=== PATIENT | female | born 1935 | race Caucasian/White ===

== ENCOUNTER → 2021-03-08 12:21 | Outpatient (CLI) | payer MEDICARE, OTHER, SELFPAY ==
--- NOTE | 2021-03-08 12:24 | MRI_ITS ---
STUDY: MRI BRAIN WITH AND WITHOUT CONTRAST REASON FOR EXAM: Female, 85 years old. mild cognitive impairment; Parkinson''s disease TECHNIQUE: Standardized multiplanar fat and water weighted pulse sequences were obtained. IV dotarem 10ml was administered for the contrast portion of the examination. COMPARISON: None. FINDINGS: Atrophy and mild periventricular white matter ischemic changes without mass effect or.. Chronic ischemic changes within the shyla. Normal bilateral basal ganglia. Normal thalami. There is no extra-axial fluid accumulation. Normal flow voids within the major intracranial circulation suggesting patency by spin echo criteria. Normal venous enhancement. There is no enhancing intra-axial or extra-axial abnormality. Normal sella turcica, pituitary gland, infundibular stalk, optic chiasm and hypothalamus. Normal tectal plate and pineal gland. Normal midbrain, shyla and medulla. Normal cerebellum. Normal basal cisterns. Normal bilateral temporal bones. Normal bilateral internal auditory canals. No demonstrated orbital abnormality, within the constraints of a routine brain study. Normal visualized paranasal sinuses. Normal calvarium and skull base. Normal visualized soft tissue structures. Normal visualized upper cervical spine. MRI/Brain W/WO Contrast IMPRESSION: Mild atrophy and periventricular white matter ischemic change without evidence for acute infarct. Mild chronic ischemic changes within the shyla. Electronically Signed: Kraig Ramírez MD at 17:23 EDT , Service support ,
[2021-03-08 12:51] LABS: CREATININE FINGERSTICK 0.7 mg/dL (0.55-1.02); EGFR FINGERSTICK > 60.0000 mL/min (>60)
== END ==
PROVIDERS: PCP Family Medicine; Referring Provider Psychiatry & Neurology Neurology; Visit Provider Psychiatry & Neurology Neurology
DX: G20 Parkinson's disease (principal); G31.84 Mild cognitive impairment of uncertain or unknown etiology
CPT/HCPCS: 70553; A9575

== ENCOUNTER 2021-07-05 16:33 | Emergency (ER) | payer MEDICARE, OTHER, SELFPAY ==
[2021-07-05 16:34] VITALS: BP 162/66; PULSE 95; RESP 16; TEMP 37.1; O2SAT 95; BMI 24.4
--- NOTE | 2021-07-05 16:46 | EKG12_ITS ---
Test Reason : FOREIGN BODY Blood Pressure : / mmHG Vent. Rate : 091 BPM Atrial Rate : 091 BPM P-R Int : 218 ms QRS Dur : 092 ms QT Int : 374 ms P-R-T Axes : 084 -39 088 degrees QTc Int : 460 ms Sinus rhythm with 1st degree A-V block Left axis deviation Nonspecific T wave abnormality Abnormal ECG Confirmed by BLESSING FARR, ARNOLDO ([id number]), art editor DICK CERNA ([id number]) on 07/06/2021 2:28:19 P M Referred By: GURPREET/BHARGAV Confirmed By:ALISHA FUNK MD
--- NOTE | 2021-07-05 16:47 | EDS_ITS ---
HPI History of Present Illness Chief Complaint: Foreign Body Informant: patient and family Onset/Context/Timing Onset: Today Current Severity: Gone Maximum Severity: Severe Narrative Narrative: Patient presents for evaluation after having a choking episode at a local restaurant. Patient reportedly choked on a bite of steak. She became limp and unresponsive. After Heimlich maneuver was performed she came around. Daughter states she never saw her mother bring up anything and wanted to ensure her airway was clear. Patient states that she has no difficulty swallowing at this time. [facility] Medical History Arthritis History of pneumonia Hyperlipidemia Hypertension Type 2 diabetes mellitus Home Medications amlodipine 5 mg tablet 5 mg PO DAILY tab 04/19/21 [History Last Taken Unknown] atorvastatin 20 mg tablet 20 mg PO DAILY tab 04/19/21 [History Last Taken Unknown] meloxicam 7.5 mg tablet 7.5 mg PO DAILY tab 04/19/21 [History Last Taken Unknown] Handicap Placard #1 ea 04/27/21 [Rx Last Taken Unknown] melatonin 10 mg capsule 10 mg PO HS 04/27/21 [History Last Taken Unknown] multivitamin 1 tab PO DAILY 04/27/21 [History Last Taken Unknown] carbidopa 25 mg-levodopa 100 mg tablet 1 tab PO TID #270 tab 07/05/21 [Rx Last Taken Unknown] Allergy/AdvReac Type Severity Reaction Status Date / Time Penicillin Allergy Unknown . Uncoded 07/05/21 16:36 Family History Sister defect Epilepsy Grandmother Ovarian cancer Social History Smoking Status: Never smoker Electronic Cigarette Use: not used second hand exposure: No alcohol intake: never substance use type: does not use ROS ROS ED Constitutional Constitutional ED: Denies chills or fever(s) Eyes Eyes: Denies change in vision ENT ENT ED: Denies sore throat Cardiovascular Cardiovascular: Reports chest pain and other Details: Chest wall pain Respiratory/Chest Respiratory/Chest: Denies cough or dyspnea Gastrointestinal Gastrointestinal: Denies abdominal pain, diarrhea, nausea or vomiting Genitourinary Genitourinary ED: Denies dysuria Musculoskeletal Musculoskeletal: Reports back pain Integumentary Denies rash Neurologic Neurologic: Denies headache(s) or weakness Allergic/Immunologic Allergic/Immunologic ED: Denies urticaria EXAM Physical Exam Const Vital Signs: 07/05/21 16:34 Temperature 98.7 F Temperature Source Oral Pulse Rate 95 Respiratory Rate 16 Blood Pressure 162/66 H Blood Pressure Mean 98 Pulse Ox 95 Oxygen Delivery Method Room Air Positive well nourished and well developed General Appearance ED: well developed HEENT Reports normocephalic and head/scalp atraumatic Eyes PERRL and EOMs intact bilaterally Neck supple Chest Wall inspection of chest normal and palpation of chest normal Resp normal respiratory effort and clear to auscultation bilaterally Cardio regular rate and regular rhythm GI normal to inspection, nondistended, normoactive bowel sounds Palpation: soft Extremity normal to inspection Neuro oriented x3 Neuro Narrative: No focal neuro deficits Sensorium / Orientation: alert Psych mental status grossly normal Skin no rashes or lesions noted MDM MDM MDM Narrative Medical decision making narrative: Patient was placed on program arranger. EKG obtained. CT of the chest ordered. Lab Data Attestation: I reviewed the patient's lab results. Radiography Diagnostic Testing: Clinical Impression(s) from Imaging Studies Chest CT 07/05/21 16:56 IMPRESSION: 1. Small calcified granulomas are present in the right lower lobe. Mild interstitial scarring is also present in the bilateral lung bases. No visualized consolidation. 2. Report of a possible airway foreign body, no radiopaque foreign body is seen within the airway or in the major bronchi. No high density material is seen within the lung parenchyma to suggest aspiration. Electronically Signed: Germain Yost MD at 17:39 EST , Service support , EKG Initial EKG: Attestation: I personally reviewed and interpreted this EKG as follows: Interpretation: Sinus Rhythm (Sinus at 91 with no acute ischemia.) Treatment and Re-Evaluation Comments:: CT demonstrates no evidence of airway foreign body. No infiltrate noted. Patient be discharged home with family. Referral for GI follow-up as needed provided. Discharge Plan Triage Chief Complaint: Foreign Body ED Provider: Essie Owen Dx/Rx/DC Orders Clinical Impression: Choking episode Instructions: ED Esophageal Foreign Body, Resolved Prescriptions: No Action meloxicam 7.5 mg tablet 7.5 mg PO DAILY RF: 0 amlodipine 5 mg tablet 5 mg PO DAILY RF: 0 atorvastatin 20 mg tablet 20 mg PO DAILY RF: 0 melatonin 10 mg capsule 10 mg PO HS RF: 0 multivitamin Tablet 1 tab PO DAILY RF: 0 (DME) Handicap Placard See Rx Instructions .Route .MEDSUPPLY Qty: 1 RF: 0 carbidopa-levodopa [Sinemet] 25-100 mg tablet 1 tab PO TID Qty: 270 RF: 0 Primary Care Provider: Elvis Villarreal Referrals: Elvis Villarreal MD [Primary Care Provider] - Alon Salcedo DO [STAFF PHYSICIAN] - As Needed Disposition Disposition: Home, Self Care
--- NOTE | 2021-07-05 16:53 | NURSING ---
NO OLD EKGS
--- NOTE | 2021-07-05 16:56 | CT_ITS ---
STUDY: CT CHEST WITHOUT CONTRAST REASON FOR EXAM: Female, 85 years old. foreign body RADIATION DOSAGE (If Supplied By Facility): CTDIvol = ( 6.06 ) mGy, DLP = ( 207.48 ) mGycm TECHNIQUE: Transaxial imaging was performed without the administration of intravenous contrast material. Individualized dose optimization techniques were used for this CT. COMPARISON: None. FINDINGS: Small calcified granulomas are present in the right lower lobe. Mild interstitial scarring is also present in the bilateral lung bases. No visualized consolidation. There is no demonstrated pleural abnormality. Report of a possible airway foreign body, no radiopaque foreign body is seen within the airway or in the major bronchi. No high density material is seen within the lung parenchyma to suggest aspiration. Normal heart size. A small pericardial effusion is present. Normal mediastinum. Normal hilar regions. Normal unenhanced pulmonary arteries. There is atherosclerotic calcification of the aortic arch with tortuosity and elongation of the aortic arch and descending thoracic aorta. There are multi-level degenerative changes of the thoracic spine. There is no demonstrated abnormality of the visualized upper abdomen. CT/Chest without Contrast IMPRESSION: 1. Small calcified granulomas are present in the right lower lobe. Mild interstitial scarring is also present in the bilateral lung bases. No visualized consolidation. 2. Report of a possible airway foreign body, no radiopaque foreign body is seen within the airway or in the major bronchi. No high density material is seen within the lung parenchyma to suggest aspiration. Electronically Signed: Germain Yost MD at 17:39 EST , Service support ,
== END 2021-07-05 18:43 | disposition home or self-care (01) ==
PROVIDERS: Emergency Provider Emergency Medicine; PCP Family Medicine
DX: R09.89 Other specified symptoms and signs involving the circulatory and respiratory systems (principal); E11.9 Type 2 diabetes mellitus without complications; I10 Essential (primary) hypertension; E78.5 Hyperlipidemia, unspecified; M19.90 Unspecified osteoarthritis, unspecified site; Z79.1 Long term (current) use of non-steroidal anti-inflammatories (NSAID); Z79.899 Other long term (current) drug therapy
CPT/HCPCS: 71250; 93005; 99285